=== PATIENT | female | born 1960 | race Caucasian/White ===

== ENCOUNTER 2018-12-29 22:49 | Emergency (ER) | payer OTHER ==
[2018-12-30] MEDS ORDERED: diphenhydrAMINE 50 MG CAP ONE (00:35)
== END 2018-12-30 00:52 | disposition home or self-care (01) ==
LOC: ERS 22:49
DX: T63.441A Toxic effect of venom of bees, accidental (unintentional), initial encounter (principal)
CPT/HCPCS: 99282; Q0163